=== PATIENT | male | born 1935 | race Asian ===

== ENCOUNTER 2016-10-31 10:33 | Inpatient (IN) | payer OTHER, MEDICAID ==
[~2016-10-31] VITALS: Ht 160 cm; Wt 84.5 kg
--- NOTE | 2016-10-31 10:48 | NUR ---
EKG DONE IN TRIAGE.
--- NOTE | 2016-10-31 10:52 | NUR ---
PT AMBULATORY WITH STEADY GAIT TO BED 12
--- NOTE | 2016-10-31 10:56 | NUR ---
LAB AT BEDSIDE FOR BLOOD DRAW
--- NOTE | 2016-10-31 10:57 | NUR ---
PT BIB SIGNIFICANT OTHER FOR CHEST PAIN TO LEFT SIDE OF CHEST, PER PT "I JUST WOKE UP YESTERDAY WITH PAIN"
--- NOTE | 2016-10-31 11:08 | NUR ---
PT REPORTS WHEN TAKING A DEEP BREATH "PAIN TO LEFT SIDE"
--- NOTE | 2016-10-31 11:11 | NUR ---
PORTABLE RADIOLOGY AT [facility] FOR CXR
[2016-10-31 11:15] LABS: CALCIUM 8.6 mg/dL (8.5-10.1); CARBON DIOXIDE 28.5 mmol/L (21-32); CHLORIDE SERUM 99 mmol/L (98-107); CREATININE SERUM 0.9 mg/dL (0.7-1.3); GLUCOSE SERUM 223 mg/dL (74-106); POTASSIUM SERUM 4.1 mmol/L (3.5-5.1); SODIUM SERUM 133 mmol/L (136-145)
[2016-10-31] MEDS ORDERED: ADULT LOW DOSE81 MG PO (11:16)
[2016-10-31] MEDS ORDERED: TOPROL XL25 MG PO (11:16)
[2016-10-31 11:17] LABS: BASOPHIL % 0.5 % (0-2); PLATELET COUNT 206 x10^3mcL (130-400); RED CELL DISTRIBUTION WIDTH 13.4 % (11.5-14.5)
[2016-10-31] MEDS ORDERED: METFORMIN HCL500 MG PO (11:17)
[2016-10-31] MEDS ORDERED: CARDURA4 MG PO (11:18)
[2016-10-31] MEDS ORDERED: LOSARTAN POTASS50 M1 PO (11:18)
[2016-10-31 11:19] LABS: ALBUMIN 3.7 g/dL (3.4-5.0); ALKALINE PHOSPHATASE 71 U/L (46-116); ALT/SGPT 49 U/L (16-63); AST/SGOT 28 U/L (15-37); BILIRUBIN TOTAL 0.44 mg/dL (0.20-1.00); TOTAL PROTEIN, SERUM 7.3 g/dL (6.4-8.2)
[2016-10-31] MEDS ORDERED: DORZOLAMIDE HYD10 ML OU (11:19)
[2016-10-31] MEDS ORDERED: LATANOPROST2.5 ML OU (11:19)
[2016-10-31] MEDS ORDERED: PRAVACHOL20 MG PO (11:20)
[2016-10-31] MEDS ORDERED: ALLOPURINOL100 MG PO (11:20)
[2016-10-31] MEDS ORDERED: NITROSTAT0.4 MG SL (11:21)
[2016-10-31] MEDS ORDERED: COLCRYS0.6 M2 PO (11:21)
--- NOTE | 2016-10-31 12:01 | NUR ---
MEDICATIONS ADMINISTERED PER MD ORDER, PLEASE SEE EMAR, PT TOLERATED WELL
[2016-10-31 13:02] LABS: CHOLESTEROL/HDL RATIO 3.5
[2016-10-31 13:09] LABS: FREE T4 1.1 ng/dL (0.76-1.46); FREE THYROXINE INDEX 2.1 ug/dL (1.4-4.5); T4(THYROXINE) 6.1 ug/dL (4.7-13.3)
[2016-10-31 13:11] LABS: T3 TOTAL 0.94 ng/mL
--- NOTE | 2016-10-31 13:27 | NUR ---
REPORT CALLED TO MIN ON MST FOR ADMISSION OF THIS PT.
[2016-10-31 14:49] VITALS: BP 135/70
--- NOTE | 2016-10-31 15:10 | NUR ---
PT WAS TRANSFER VIA GURNEY. PT AMBULATE TO BED WITH STEADY GIAT. PT IS AOX4 ABLE TO FOLLOW VERBAL COMMANDS. PT ON TELE # 14 NSR, HR 76, REPORT PRESSURE ON L CHEST 5/10 WILL MEDICATE PER EMAR. NO SIGNS OF SOB OR ACUTE DISTRESS NOTED AT THIS TIME. ORIENTED PT TO ROOM AND CALL LIGHT. AT BEDSIDE. BED AT LOW AND CALL LIGHT WITHIN REACH.
--- NOTE | 2016-10-31 15:20 | NUR ---
PT C/O CHEST PAIN 12/13. WILL MEDICATE PER EMAR. BP 114/59 HR 66. PT IS AAOX4. NO SIGNS OF SOB OR ACUTE DISTRESS AT THIS TIME. BED AT LOW AND CALLL LIGHT WITHIN REACH. SON AND AT BEDSIDE.
[2016-10-31 18:31] VITALS: BP 135/70
--- NOTE | 2016-10-31 18:36 | NUR ---
PT DENIES CHEST PAIN AT THIS TIME AND PRESSURE ON THE L CHEST. AT BEDSIDE. WILL ENDORSE ALL CARE TO ONCOMING RN. NS INFUSING AT 100 ML/HR TO RAC. IV SITE WNL. BED AT LOW AND CALL LIGHT WITHIN REACH.
--- NOTE | 2016-10-31 19:30 | NUR ---
PT IS A/O X4, VERBAL RESPONSIVE, ABLE TO TELL WHAT HE NEEDS. LUNG SOUND CLEAR BILATERAL, NO COUGH, NO SOB, PT IS ON TELE 14, NSR, DENY ANY CHEST PAIN OR DISCOMFORT, BOWEL SOUND PRESENT ALL 4 QUADRANTS, NO DISTENTION, NO TENDER, PEDAL PULSE PRESENT BOTH FEET, NO EDEMA NOTED, IV AT RIGHT AC, NO LEAKING, NO INFILTRATION. ALL ADLS ASSIST, ALL NEED MET, CALL LIGHT IN REACH, WILL CONTINUE TO MONITOR.
[2016-10-31 21:49] VITALS: BP 122/63
[2016-11-01 00:04] LABS: microscopic required? NO
[2016-11-01 00:39] LABS: urine erythrocyte NEGATIVE (NEGATIVE)
--- NOTE | 2016-11-01 04:00 | NUR ---
RESUMED CARE OF PT FROM ERICA GARAY. PT RESTING IN BED WITH EYES CLOSED. FAMILY AT BEDSIDE. CALL LIGHT WITHIN REACH.
[2016-11-01 06:02] VITALS: BP 107/49
[2016-11-01 06:17] LABS: CALCIUM 8.5 mg/dL (8.5-10.1); CHLORIDE SERUM 103 mmol/L (98-107); CREATININE SERUM 0.9 mg/dL (0.7-1.3); GLUCOSE SERUM 133 mg/dL (74-106); MAGNESIUM 2.1 mg/dL (1.8-2.4); PHOSPHOROUS 4.3 mg/dL (2.5-4.9); POTASSIUM SERUM 4.3 mmol/L (3.5-5.1); SODIUM SERUM 139 mmol/L (136-145)
--- NOTE | 2016-11-01 06:20 | NUR ---
PT RESTING IN BED WITH NO C/O PAIN AT THIS TIME. FAMILY AT BEDSIDE FOR ASSISTANCE. CALL LIGHT WITHIN REACH. WILL ENDORSE TO DAY SHIFT.
[2016-11-01 07:04] LABS: BASOPHIL % 0.6 % (0-2); PLATELET COUNT 185 x10^3mcL (130-400); RED CELL DISTRIBUTION WIDTH 13.3 % (11.5-14.5)
--- NOTE | 2016-11-01 07:15 | NUR ---
RECIVED REPORT FROM HUGO GARAY AT BEDSIDE. PT IS AAOX4 ABLE TO FOLLOW VERBAL COMMANDS. PT IS SITTING UP AT BEDSIDE EATING BREAKFAST. TOLERATED DIET WELL. PT DENIES CHEST PAIN OR PRESSURE ON CHEST AT THIS TIME. PT RECIEVING 2L O2 VIA LUDM[place]A. NO SIGNS OF SOB OR ACUTE DISTRESS AT THIS TIME. NS INFUSING AT 80ML/HR TO RAC. IV SITE WNL. AT BEDSIDE. BED AT LOW AND CALL LIGHT WITHIN REACH.
[2016-11-01 08:05] VITALS: BP 118/63
[2016-11-01 14:00] VITALS: BP 111/60
[2016-11-01 17:18] VITALS: BP 127/69
--- NOTE | 2016-11-01 19:19 | NUR ---
PT IS AAOX4, ABLE TO FOLLOW VERBAL COMMANDS. PT ON RA NO SIGNS OF SOB OR ACUTE DISTRESS NOTED AT THIS TIME. PT DENIES ANY CHEST PAIN AT THIS TIME. ENDORSED ALL CARE TO STACY GARAY. BED AT LOW AND CALL LIGHT WITHIN REACH. FAMILY AT BEDSIDE.
--- NOTE | 2016-11-01 20:00 | NUR ---
RECEIVED PT IN BED, A/O X4. DENIES HEADACHE/DIZZINESS.RESP. EVEN AND UNLABORED.LUNGS SOUNDS CLEAR BILAT. ON ROOM AIR, NO DISTRESS NOTED.AFEBRILE AND VITAL SIGNS STABLE. SR ON THE MONITOR, DENIES CHEST PAIN OR ANY DISCOMFORT AT THIS TIME. ABD. SOFT, NON DISTENDED, BS ACTIVE, NO N/V NOTED. IVF, NS AT 80ML/HR, INTACT AND INFUSING WELL, SITE CLEAR. AMBULATORY. VOIDING FREELY. ASSISTED WITH HS CARE. CALL LIGHT WITHIN REACH. WILL CONTINUE TO MONITOR.
[2016-11-01 21:00] VITALS: BP 139/79
--- NOTE | 2016-11-02 00:30 | NUR ---
NO COMPLAINTS NOTED AT THIS TIME. AT THE BEDSIDE. WILL CONTINUE TO MONITOR.
--- NOTE | 2016-11-02 04:23 | NUR ---
COMPLAINED OF ABD. SURGICAL SITE PAIN, 5/10, MEDCATED WITH NORCO 1TAB PO ORDERED. WILL CONTINUE TO MONITOR.
[2016-11-02 06:20] VITALS: BP 114/63
[2016-11-02 06:22] LABS: BASOPHIL % 0.6 % (0-2); PLATELET COUNT 180 x10^3mcL (130-400); RED CELL DISTRIBUTION WIDTH 13.4 % (11.5-14.5)
--- NOTE | 2016-11-02 06:22 | NUR ---
SLEPT MOST OF THE NIGHT, WITH THE AT THE BEDSIDE. RESP. EVEN AND UNLABORED. ON ROOM AIR, NO DISTRESS NOTED. AFEBRILE AND VITAL SIGNS STABLE. DUE MEDS GIVEN ORDERED, JG. WELL. IVF INTACT AND INFUSING WELL, SITE CLEAR. REMAINS SR ON THE MONITOR. DENIES CHEST PAIN OR ANY DISCOMFORT. WILL CONT. TO MONITOR.
[2016-11-02 06:39] LABS: CALCIUM 8.5 mg/dL (8.5-10.1); CHLORIDE SERUM 105 mmol/L (98-107); CREATININE SERUM 0.8 mg/dL (0.7-1.3); GLUCOSE SERUM 127 mg/dL (74-106); MAGNESIUM 2.1 mg/dL (1.8-2.4); PHOSPHOROUS 3.7 mg/dL (2.5-4.9); POTASSIUM SERUM 4.1 mmol/L (3.5-5.1); SODIUM SERUM 139 mmol/L (136-145)
--- NOTE | 2016-11-02 07:25 | NUR ---
REASSESSMENT DONE. PT AWAKE ALERT COOPERATIVE OF CARE. DENIES CP, SOB, ABD PAIN. BOWEL SOUNDS ACTIVE TO ALL QUADRANTS. NO DISCOMFORT UPON URINATION. PT AMBULATORY WITH STEADY GAIT. IV INFUSING WELL TO RFA 80ML/HR. BED IN LOW POSITION, CALL LIGHT WITHIN REACH, WILL CONTINUE TO MONITOR.
[2016-11-02 10:36] VITALS: BP 127/67
[2016-11-02] MEDS ORDERED: LOP600 PO (12:16)
[2016-11-02] MEDS ORDERED: NEU300 PO (13:07)
[2016-11-02 13:26] VITALS: BP 127/67
--- NOTE | 2016-11-02 14:00 | NUR ---
DISCHARGE INSTRUCTIONS GIVEN TO PT AND . PT VERBALIZED UNDERSTANDING. IV DC'D NO PHLEBITIS, CATHETER INTACT. PT ESCORTED OUT OF UNIT SEFALY BY RN.
== END 2016-11-02 14:05 | disposition home or self-care (01) | DRG 205 ==
LOC: ED 10:33 → MU 12:56 → DU 12:56 → MU 11-02 07:02
PROVIDERS: Emergency Medicine; ADMIT Family Medicine
DX: M94.0 Chondrocostal junction syndrome [Tietze] (principal); I50.41 Acute combined systolic (congestive) and diastolic (congestive) heart failure; E87.1 Hypo-osmolality and hyponatremia; D68.69 Other thrombophilia; E11.65 Type 2 diabetes mellitus with hyperglycemia; I11.0 Hypertensive heart disease with heart failure; N40.0 Benign prostatic hyperplasia without lower urinary tract symptoms; H40.9 Unspecified glaucoma; E78.5 Hyperlipidemia, unspecified; Z79.82 Long term (current) use of aspirin; Z68.33 Body mass index [BMI] 33.0-33.9, adult; Z79.84 Long term (current) use of oral hypoglycemic drugs; Z95.5 Presence of coronary angioplasty implant and graft; I25.10 Atherosclerotic heart disease of native coronary artery without angina pectoris
CPT/HCPCS: 83880; 84439; J2270; J3010; J7030; Q0092